=== PATIENT | female | born 1940 | race Caucasian/White ===

== ENCOUNTER 2020-05-21 01:17 | Emergency (ER) | payer MEDICARE ==
[~2020-05-21] VITALS: Ht 167.6 cm; Wt 68.0 kg
[2020-05-21 01:44] VITALS: BP 198/89
== END 2020-05-21 04:15 | disposition home or self-care (01) ==
LOC: EDBD 01:17 → ER 01:20 → EDBD 01:20 → ER 04:15
DX: F03.90 Unspecified dementia, unspecified severity, without behavioral disturbance, psychotic disturbance, mood disturbance, and anxiety (principal); F32.9 Major depressive disorder, single episode, unspecified
CPT/HCPCS: 93005